=== PATIENT | male | born 1980 | race Caucasian/White ===

== ENCOUNTER 2017-01-16 09:01 | Inpatient (IN) | payer BC, OTHER ==
[~2017-01-16] VITALS: Ht 185.4 cm; Wt 83.9 kg
--- NOTE | 2017-01-16 11:00 | NUR ---
INTAKE INTERVIEW Patient is a 36 year old male. Alert and orientated X 4. Vital signs are normal. Able to ambulate appropriately. no allergies reported. 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 Patient is here for dependence of Valium. He brought Ativan 2mg with him and will be disposed properly. No family history of substance abuse. Patient was explained all unit protocols and verbalized understanding.
--- NOTE | 2017-01-16 11:30 | NUR ---
ADMISSION NOTE VS: BP-129/95 HR-100 R- 20 T-97.4f O2-97% Pain- 0/10 Height: 6'0" Weight: 185 Allergies: NKA Patient is a 36 year old male admitted to [facility] on 01/16/2017 at 1130. patient is under the care of DR. Ernandez for benzo dependence. Patient denies suicidal and homicidal ideations at this time. patient denies being hospitalized in the past 30 days. patient denies chest pain on SOB. Patient reports using Valium 15 mg daily. Upon assessment patients skin is intact. CIWA is 9 upon admission. NKA, alert and orientated X4. He is able to answer questions necessary for the admission process. Pt is a full code. Vital signs WNL, regular diet. Patient denies having seizures. Patient denies having a PCP. Dr. Melendrez is his psychiatrist. Patient respirations are even and unlabored, spo2 is 97% on room air. patient ambulates with a steady gait. pt reprots feeling extremely anxious. pt reports hx of treatment at [facility] in october 2016. patient lives at home with his family. HX of anxiety and depression. patient refuses pneumonia vaccination. Dr. ernandez has been notified and has placed the patient under observation. all needs have been met. Pat has been orientated to the room and the unit. [facility]. Bed is in lowest position, side rails up X2 and call light within reach. Will continue to monitor patient. SUBSTANCE ABUSE: Valium 15 mg daily since september 2016 last used 01/15/2017
[2017-01-16 11:45] LABS: *AMPHETAMINE, URINE NEGATIVE (NEGATIVE); *BARBITURATE, URINE NEGATIVE (NEGATIVE); *CANNABINOID, URINE NEGATIVE (NEGATIVE); *COCCAINE, URINE NEGATIVE (NEGATIVE); *OPIATE, URINE NEGATIVE (NEGATIVE); *PHENCYCLIDINE SCREEN,URINE NEGATIVE (NEGATIVE)
[2017-01-16 12:00] VITALS: BP 129/75
[2017-01-16] MEDS ORDERED: DIAZEPAM 10 MG TABLET PO ONE (13:15)
[2017-01-16] MEDS ORDERED: HYDROXYZINE PAMOATE 25 MG CAPSULE PO PRN ×2 (13:15→13:45)
[2017-01-16] MEDS ORDERED: ACETAMINOPHEN 325 MG TABLET PO PRN (13:45)
[2017-01-16] MEDS ORDERED: IBUPROFEN 400 MG TABLET PO PRN (13:45)
[2017-01-16] MEDS ORDERED: DICYCLOMINE HCL 20 MG TABLET PO PRN (13:45)
[2017-01-16] MEDS ORDERED: MAGNESIUM HYDROXIDE 30 ML LIQUID UDC PO PRN (13:45)
[2017-01-16] MEDS ORDERED: DIAZEPAM 5 MG TABLET PO PRN (13:45)
[2017-01-16] MEDS ORDERED: MAG HYDROX/AL HYDROX/SIMETH 30 ML LIQUID UDC PO PRN (13:45)
[2017-01-16] MEDS ORDERED: ONDANSETRON 4 MG/2 ML VIAL IM PRN (13:45)
[2017-01-16] MEDS ORDERED: DIAZEPAM 10 MG TABLET PO PRN ×2 (13:45)
[2017-01-16] MEDS ORDERED: LOPERAMIDE HCL 2 MG CAPSULE PO PRN ×2 (13:45)
[2017-01-16] MEDS ORDERED: THIAMINE HCL 200 MG/2 ML VIAL IM ONE (13:45)
[2017-01-16] MEDS ORDERED: LORAZEPAM 2 MG/1 ML VIAL IM PRN (13:45)
[2017-01-16] MEDS ORDERED: MIRALAX 17 GM POWD.PACK PO PRN (13:45)
[2017-01-16] MEDS: GABAPENTIN 300 MG CAPSULE PO SCH (15:14)
[2017-01-16 15:33] LABS: BASOPHILS # (AUTO) 0.1 K/uL (0.0-8.0); BASOPHILS % (AUTO) 0.7 % (0.0-2.0); EOSINOPHILS # (AUTO) 0.1 K/uL (0.0-0.7); EOSINOPHILS % (AUTO) 0.9 % (0.0-7.0); HEMATOCRIT 49.4 % (40-50); HEMOGLOBIN 16.2 G/DL (14.0-18.0); LYMPHOCYTES # (AUTO) 3.1 K/UL (0.8-4.8); MEAN CORPUSCULAR HEMOGLOBIN 29.5 UUG (27.0-31.0); MEAN CORPUSCULAR HGB CONC 33 g/dL (32.0-37.0); MONOCYTES # (AUTO) 0.7 K/UL (0.1-1.30); MONOCYTES % (AUTO) 7.2 % (0.0-11.0); NEUTROPHILS # (AUTO) 6.1 K/UL (1.8-8.9); NEUTROPHILS % (AUTO) 60.2 % (38.5-71.5); PLATELET COUNT (AUTO) 277 K/UL (150-450); RED BLOOD CELL COUNT(AUTO) 5.49 MIL/UL (4.7-6.1); WHITE BLOOD COUNT (AUTO) 10.1 K/UL (4.0-11.2)
[2017-01-16] MEDS: ESCITALOPRAM OXALATE 10 MG TABLET PO SCH (15:51)
[2017-01-16 15:55] LABS: ETHANOL < 3 MG/DL (0-0)
[2017-01-16 15:58] LABS: ALANINE AMINOTRANSFERASE 102 U/L (16-63); ALKALINE PHOSPHATASE 76 U/L (50-136); ASPARTATE AMINOTRANSFERASE 37 U/L (15-37); BILIRUBIN,TOTAL 1.2 mg/dL (0.2-1.0); CARBON DIOXIDE 24 mmol/L (21-32); CHLORIDE 104 mmol/L (98-107); CREATININE 1.1 mg/dL (0.6-1.3); GLUCOSE 111 mg/dL (74-106); MAGNESIUM 2.4 mg/dL (1.8-2.4); POTASSIUM 3.6 mmol/L (3.5-5.1); TOTAL PROTEIN, SERUM 7.7 g/dL (6.4-8.2); UREA NITROGEN, BLOOD 12 mg/dL (7-18)
[2017-01-16 16:00] VITALS: BP 109/68
[2017-01-16 16:07] LABS: THYROID STIMULATING HORMONE 1.114 mIU/mL (0.358-3.740)
[2017-01-16] MEDS: ONDANSETRON ODT 4 MG TAB.RAPDIS SL PRN (17:54)
--- NOTE | 2017-01-16 17:55 | NUR ---
PRN MEDICATION Patient complained of nausea. No emesis reported. Gave 4mg SL Zofran. Will continue to monitor patient.
--- NOTE | 2017-01-16 18:25 | NUR ---
PRN REASSESSMENT Patient expressed Zofran decreased his nausea. Will continue to monitor.
--- NOTE | 2017-01-16 18:48 | NUR ---
END OF SHIFT NOTE Patient was admitted today around 1130 for Valium dependency. Patient is alert and orientated X 4. Vital signs remain stable throughout the day. Patient is laying comfortably in bed. Patient has a history of premature ventricular heart beat, anxiety and depression. Patient has an external heart monitor. Zofran PRN given for nausea with effectiveness. Patient was seen by Dr. Tovar. All safety measures in place; call light within reach, bed locked and in lowest position. Last CIWA 6, All needs have been met. Will endorse to oncoming night nurse.
[2017-01-16 20:00] VITALS: BP 119/81
--- NOTE | 2017-01-16 20:00 | NUR ---
Start of Shift Pt is a 36 year old male admitted for Benzo dependence, placed on Valium taper. Pt reported using Valium 15mg/daily and Klonopin 3mg/daily. PMH: Anxiety, Depression and Premature Ventricular heart beat. Patient has an external heart monitor. NKA, regular diet, fall/seizure precautions and full code. Upon assessment, pt reports feeling anxious, Pt states, I I feet on edge. Pt is fidgeting, unable to sit still. Respirations even/unlabored, denies SOB/chest pain, denies n/v/d, BP 119/81, pulse 86, respirations 14, SpO2 98%, temp 97.9, no pain 0/10. Scheduled medications to be administered. Safety measures in place, call light within reach, side rails up x2, bed locked and in low position. Will continue to monitor.
[2017-01-16] MEDS ORDERED: GABAPENTIN 300 MG CAPSULE PO SCH (21:00)
[2017-01-16] MEDS ORDERED: DIAZEPAM 10 MG TABLET PO SCH (21:00)
[2017-01-16] MEDS: CLONIDINE HCL 0.1 MG TABLET PO PRN (23:33)
--- NOTE | 2017-01-16 23:33 | NUR ---
PRN Administration Pt reports feeling anxious and restless.. Pt is noted to continuously tapping feet, fidgeting and is unable to sit still. Pt requested relief. Clonidine 0.1mg PRN administered. Safety measures in place. Will continue to monitor.
[2017-01-17] VITALS: BP 115/88
--- NOTE | 2017-01-17 00:33 | NUR ---
PRN Reassessment/Administration Upon reassessment, pt is awake, reports to continue feeling anxious, restless and is unable to fall asleep. Pt refuses to take Valium PRN that is available. Pt reports, I need a stronger medication to help me because nothing is helping me. Contacted , received new order for Trazodone 50mg x1 and contact psych for any additional orders. Trazodone 50mg PRN x1 administered. Safety measures in place. Will continue to monitor.
--- NOTE | 2017-01-17 01:03 | NUR ---
PRN Reassessment Trazodone 50mg x1 ineffective
[2017-01-17] MEDS ORDERED: TRAZODONE 50 MG TABLET PO ONE (01:15)
--- NOTE | 2017-01-17 01:15 | NUR ---
Behavioral Pt seen pacing, restless, irritated. Tried to implement non-pharmacological methods methods were ineffective. Pt continued to state, I need something stronger to help my restlessness and anxiety. Continued to offer current medications, however pt refused.
--- NOTE | 2017-01-17 02:43 | NUR ---
Psych Communication Contacted Psych for new orders regarding anxiousness, restlessness that pt states was not relieved. Psych stated no new orders and for pt to continue current medications.
--- NOTE | 2017-01-17 03:18 | NUR ---
PRN Administration Valium 10mg PRN administered, CIWA 10 pt is restless, fidgeting, racing thoughts, irritable, sweaty. Safety measures in place. Will continue to monitor.
[2017-01-17 04:00] VITALS: BP 111/80
--- NOTE | 2017-01-17 04:18 | NUR ---
PRN Reassessment CIWA 8
[2017-01-17] MEDS: ONDANSETRON ODT 4 MG TAB.RAPDIS SL PRN ×2 (06:04→23:03)
--- NOTE | 2017-01-17 06:04 | NUR ---
ZOFRAN PRN Pt reports nausea, requests relief - Zofran 4mg ODT PRN adminitered. Safety measures in place. Will continue to monitor.
--- NOTE | 2017-01-17 07:04 | NUR ---
ZOFRAN PRN REASSESSMENT Nausea improved as reported per pt. safety measures in place. Will continue to monitor.
--- NOTE | 2017-01-17 07:05 | NUR ---
End of Shift Pt is a 36 year old male admitted for Benzo dependence, placed on Valium taper. Pt reported using Valium 15mg/daily and Klonopin 3mg/daily. PMH: Anxiety, Depression and Premature Ventricular heart beat. Patient has an external heart monitor. NKA, regular diet, fall/seizure precautions and full code. At 2333, Pt reported feeling anxious, restlessness and fidgeting noted, Clonidine 0.1mg PRN administered Clonidine ineffective. Pt continue to report feeling anxious, restless and was unable to fall asleep. Pt refused to take Valium PRN that was available. Pt reports, I need a stronger medication to help me because nothing is helping me. Contacted MD, received and administered new order for Trazodone 50mg x1 and to contact psych for any additional orders. Trazodone 50mg x1 ineffective, Pt seen pacing, restless, irritated. Tried to implement non-pharmacological methods methods were ineffective. Pt continued to state, I need something stronger to help my restlessness and anxiety. Continued to offer current medications, however pt refused. Upon contacting psych, Psych stated no new orders and for pt to continue current medications. Valium 10mg PRN was administered at 0318 for CIWA 10 pt noted restless, fidgeting, racing thoughts, irritable, sweaty. Upon reassessment, CIWA 10 decreased to CIWA 8. Zofran 4mg ODT administered for nausea, effective. Pt slept for 1 hour, intake of 796 ml PO, voids x0 and stool x0. Safety measures in place, call light within reach, side rails up x2, bed locked and in low position. Endorsed to day shift nurse.
--- NOTE | 2017-01-17 07:37 | NUR ---
START OF SHIFT NOTE: Received report from shift superintendent nurse. Pt is a 36 year old male admitted 01-16-17 for Benzo dependence, placed on Valium taper. Tolerating well. Pt is alert and oriented X 4. Color good, skin warm and dry. Respirations even and unlabored. Resting in bed. Safety precautions observed. Call light within reach. Will continue to monitor.
[2017-01-17 08:00] VITALS: BP 118/73
[2017-01-17] MEDS ORDERED: BENZOCAINE/MENTH/CETYLPYRD LOZENGE MM PRN (08:15)
[2017-01-17] MEDS ORDERED: TUBERCULIN,PURIF.PROT.DERIV. 5 TU/0.1 ML TEST ID ONE (09:00)
--- NOTE | 2017-01-17 09:00 | NUR ---
TB test administered RFA
[2017-01-17] MEDS: ESCITALOPRAM OXALATE 10 MG TABLET PO SCH (09:08)
[2017-01-17] MEDS: MULTIVITAMINS,THERAPEUTIC TABLET PO SCH (09:09)
[2017-01-17] MEDS: DIAZEPAM 5 MG TABLET PO SCH ×4 (09:09→21:40)
[2017-01-17] MEDS: GABAPENTIN 300 MG CAPSULE PO SCH ×3 (09:09→21:40)
[2017-01-17] MEDS: THIAMINE HCL 100 MG TABLET PO SCH (09:09)
[2017-01-17] MEDS: FOLIC ACID 1 MG TABLET PO SCH (09:09)
[2017-01-17] MEDS: DOCUSATE SODIUM 250 MG CAPSULE PO SCH (09:09)
--- NOTE | 2017-01-17 10:00 | NUR ---
VSS CIWA 11 Pt c/o anxiety, restless legs, sweating. Pt states "Valium is not working." Dr. Tovar notified.
[2017-01-17] MEDS ORDERED: DIAZEPAM 5 MG TABLET PO PRN (12:45)
[2017-01-17] MEDS ORDERED: DIAZEPAM 10 MG TABLET PO PRN (12:45)
--- NOTE | 2017-01-17 13:00 | NUR ---
VSS CIWA 5 Pt c/o anxiety but states is much improved from this AM. Gabapentin increased to 600mg tid.
[2017-01-17 13:10] LABS: HEPATITIS B SURFACE AG Negative (Negative)
[2017-01-17 13:32] VITALS: BP 109/65
[2017-01-17] MEDS ORDERED: TRAZODONE 100 MG TABLET PO PRN (17:15)
[2017-01-17 17:48] VITALS: BP 90/54
--- NOTE | 2017-01-17 18:37 | NUR ---
END OF SHIFT REPORT: Report given to shift supervisor nurse . Pt is a 36 year old male admitted 01-16-17 for Benzo dependence, placed on Valium taper. Tolerating well. Pt is alert and oriented X 4. Color good, skin warm and dry. Respirations even and unlabored. Vital signs remained stable throughout shift. Last CIWA 5 @ 1700. No prn medication administered. Safety precautions observed. Call light within reach.
[2017-01-17 20:00] VITALS: BP 107/67
--- NOTE | 2017-01-17 20:15 | NUR ---
START OF SHIFT NOTE Pt is a 36 y/o male admitted for Valium and Klonopin dependence and use. Pt has NKA but reported a PMH of Pre mature ventricular heart beat, anxiety, and depression. Per day shift nurse pt was placed on a Valium taper and is tolerating medication well, with no s/e or a/r reported. Pt didn't receive any PRNS during the day shift. Last CIWA: 5 (1600). At this time pt is in his room watching television. Pt stated " I'm doing alright. Earlier was a little rough, but as the day went on things got better. " Pt denies any pain/discomfort at this time. Pt encouraged to notify staff of any changes in condition or of any concerns. Pt verbalized an understanding. All safety measures in place; side rails up x 2, bed locked and in low position, and call light within reach. Will continue to monitor.
--- NOTE | 2017-01-17 23:03 | NUR ---
ZOFRAN PRN ADMINISTRATION Pt stated " I feel nauseous. " Zofran 4 mg ODT was given. Pt encouraged to notify staff of any changes in condition or of any concerns. Pt verbalized an understanding. All safety measures in place; side rails up x 2, bed locked and in low position, and call light within reach. Will monitor for effectiveness.
[2017-01-18] VITALS: BP 123/74
--- NOTE | 2017-01-18 00:03 | NUR ---
SEB PRN REASSESSMENT Pt stated " I feel better now. I'm not nauseous." PRN effective. Will continue to monitor.
[2017-01-18 04:00] VITALS: BP 115/72
[2017-01-18] MEDS: CLONIDINE HCL 0.1 MG TABLET PO PRN ×2 (04:51→15:04)
--- NOTE | 2017-01-18 04:51 | NUR ---
CLONIDINE PRN ADMINISTRATION Pt stated "I 'm feeling restless and anxious, but I don't want Vistaril." Pt verbally consented to taking Clonidine 0.1 mg PO PRN. PRN given. Pt encouraged to notify staff of any changes in condition or of any concerns. Pt verbalized an understanding. All safety measures in place; side rails up x 2, bed locked and in low position, and call light within reach. Will monitor for effectiveness.
--- NOTE | 2017-01-18 05:41 | NUR ---
CLONIDINE PRN REASSESSMENT Pt stated " I feel relaxed." PRN effective. Will continue to monitor.
--- NOTE | 2017-01-18 07:15 | NUR ---
Start of Shift Report from the night nurse: pt is a 36 y/o male here for Benzo's r/t Klonopin 3mg and Valium 15mg/d; Modified Valium taper ordered. Pt is a full code, regular diet, NKA, fall and seizure precautions. Hhx: PVC's with EKG done at admission and results of NSR and BP/HR WNL's, Anxiety, Depression and relapse. PRN Zofran and Clonidine given last night for anxiety but the pt refused Vistaril. No abnormal labs or new orders endorsed. Last CIWA 7. Pt is in room asleep. Will cont. to monitor the pt.
--- NOTE | 2017-01-18 07:52 | NUR ---
END OF SHIFT NOTE Pt is a 36 y/o male admitted for Valium and Klonopin dependence and use. Pt has NKA but reported a PMH of Pre mature ventricular heart beat, anxiety, and depression. Pt continues on a Valium taper and is tolerating medication well, with no s/e or a/r reported. Pt received Zofran 4 mg ODT and Clonidine 0.1 mg PO PRN during the shift. Last CIWA: 7 (0400). Pt slept for a total of 6 hours. All safety measures in place; side rails up x 2, bed locked and in low position, and call light within reach. Endorsed to the oncoming nurse.
[2017-01-18 08:00] VITALS: BP 96/62
[2017-01-18 08:23] LABS: BILIRUBIN,DIRECT 0.3 mg/dL (0.0-0.2); BILIRUBIN,TOTAL 0.8 mg/dL (0.2-1.0); TOTAL PROTEIN, SERUM 7.8 g/dL (6.4-8.2)
[2017-01-18] MEDS: ESCITALOPRAM OXALATE 10 MG TABLET PO SCH (08:51)
[2017-01-18] MEDS: GABAPENTIN 300 MG CAPSULE PO SCH ×3 (08:51→20:43)
[2017-01-18] MEDS: DIAZEPAM 5 MG TABLET PO SCH ×3 (08:52→20:43)
[2017-01-18] MEDS: FOLIC ACID 1 MG TABLET PO SCH (08:53)
[2017-01-18] MEDS: DOCUSATE SODIUM 250 MG CAPSULE PO SCH (08:53)
[2017-01-18] MEDS: MULTIVITAMINS,THERAPEUTIC TABLET PO SCH (08:53)
[2017-01-18] MEDS: THIAMINE HCL 100 MG TABLET PO SCH (08:54)
[2017-01-18 12:00] VITALS: BP 112/61
--- NOTE | 2017-01-18 15:15 | NUR ---
PRN Medication Administration Pt is getting ready to go to group and is restless in room with c/o anxiety, V/S stable with BP 101/72 HR 82; PRN Clonidine 0.1mg given as ordered. Will reassess in 1H.
[2017-01-18 16:00] VITALS: BP 101/65
--- NOTE | 2017-01-18 16:00 | NUR ---
Reassessment Pt is in room resting during eval by Affiliate Marketing Coordinator MD and denies chest pain, is relaxed and states that he feels better, BP 101/65 HR 73; Clonidine is effective. Will cont. to monitor the pt.
--- NOTE | 2017-01-18 19:35 | NUR ---
End of Shift Report to night nurse: pt is a 36 y/o male here for Benzo's r/t Klonopin 3mg and Valium 15mg/d; Modified Valium taper ordered. Pt is a full code, regular diet, NKA, fall and seizure precautions. Hhx: PVC's with EKG done at admission and results of NSR and BP/HR WNL's, Anxiety, Depression and relapse. PRN Clonidine given for anxiety with stable BP, and eval by channel installer notified of pt's denial of chest pain yet clonidine given for anxiety with stable vitals and NNO's from channel installer. I notified Dr. Tovar of pt's depression with poor diet habits; recommended for me to f/u with Dr. Machado-new orders for modified Lexapro with increased dose of 15 mg. No hallucinations, delusions, or suicidal ideations during my shift. Pt is w/d to self and only attended the group therapy partially. New Orders for 01/19/17 for Liver fxn panel since pt has elevated AST and T. Bili. Last CIWA 2.
[2017-01-18 20:00] VITALS: BP 99/69
--- NOTE | 2017-01-18 20:00 | NUR ---
START OF SHIFT NOTE PATIENT IN ROOM. ALERT AND ORIENTED X 3. RESPIRATION EVEN AND UNLABORED. PATIENT C/O ANXIETY, SWEATING. NO N/V. PATIENT ENCOURAGED TO ATTEND AND PARTICIPATE IN ACTIVITIES. NO N/V. ENCOURAGE FLUIDS. DENIES ANY PAIN. RECEIVED REPORT FROM DAY SHIFT NURSE. PATIENT IS A 36 YEAR OLD MALE, ADMITTED FOR BENZO DEPENDENCE. PATIENT IS ON 3RD DAY OF HIS 4 DAY MODIFIED VALIUM TAPER. PATIENT IS FULL CODE, REGULAR DIET AND NO KNOWN ALLERGY. UPON ADMISSION,PATIENT STATES HE'S USING VALIUM 15 MG SINCE OCTOBER 14 AND KLONOPIN 3 MG SINCE [id number]. PATIENT REPORTS PMH OF PREMATURE VENTRICULAR HEART BEAT (WEARS EVENT MONITOR), ANXIETY AND DEPRESSION. SKIN INTACT. PATIENT IS ON FALL/SEIZURE PRECAUTION. NEW ORDER OF LEXAPRO. VS STABLE. PATIENT WAS GIVEN CLONIDINE FOR ANXIETY. LAST CIWA 2. SAFETY MEASURES IN PLACE. CALL LIGHT IN REACH. WILL CONTINUE TO MONITOR.
[2017-01-19] VITALS: BP 110/72
[2017-01-19] MEDS: CLONIDINE HCL 0.1 MG TABLET PO PRN ×2 (03:57→11:03)
--- NOTE | 2017-01-19 03:57 | NUR ---
PRN CLONIDINE ADMINISTRATION PATIENT C/O ANXIETY AND RESTLESSNESS. PRN CLONIDINE GIVEN. WILL MONITOR FOR EFFECTIVENESS
[2017-01-19 04:00] VITALS: BP 114/74
--- NOTE | 2017-01-19 04:57 | NUR ---
PRN CLONIDINE RE-ASSESSMENT PATIENT IN BED ASLEEP. NO S/S OF DISTRESS. RESPIRATION EVEN AND UNLABORED. SAFETY MEASURES IN PLACE. CALL LIGHT IN REACH. WILL CONTINUE TO MONITOR.
--- NOTE | 2017-01-19 07:10 | NUR ---
Start of Shift Report from the night nurse: pt is a 36 y/o male here for Benzo's r/t Klonopin 3mg and Valium 15mg/d; Modified Valium taper ordered. Pt is a full code, regular diet, NKA, fall and seizure precautions. Hhx: PVC's with EKG done at admission and results of NSR and BP/HR WNL's, Anxiety, Depression and relapse. No PRN medications given last night. V/S stable. Skin is intact. No abnormal labs or new orders endorsed. Last CIWA 3. Pt is in room asleep. Will cont. to monitor the pt.
--- NOTE | 2017-01-19 07:23 | NUR ---
END OF SHIFT NOTE MONITORED PATIENT THROUGHOUT SHIFT. PATIENT ENCOURAGE TO PARTICIPATE IN GROUPS. VS STABLE. PATIENT COMPLIANT WITH MEDICATIONS . PATIENT IN ROOM MOST OF THE SHIFT. PATIENT IS A 36 YEAR OLD MALE, ADMITTED FOR BENZO DEPENDENCE. PATIENT IS ON 3RD DAY OF HIS 4 DAY MODIFIED VALIUM TAPER. PATIENT IS FULL CODE, REGULAR DIET AND NO KNOWN ALLERGY. UPON ADMISSION,PATIENT STATES HES USING VALIUM 15 MG SINCE OCTOBER 14 AND KLONOPIN 3 MG SINCE [id number]. PATIENT REPORTS PMH OF PREMATURE VENTRICULAR HEART BEAT (PATIENT WEARS MONITOR.) , ANXIETY AND DEPRESSION. SKIN INTACT. PATIENT IS ON FALL/SEIZURE PRECAUTION. NEW ORDER OF LEXAPRO. PATIENT WAS GIVEN CLONIDINE FOR ANXIETY. LAST CIWA 3. SAFETY MEASURES IN PLACE. CALL LIGHT IN REACH. WILL CONTINUE TO MONITOR. SLEPT 8 HOURS. FLUID INTAKE 855 ML. VOIDED X 3 . NO BM .
[2017-01-19 08:00] VITALS: BP 98/62
[2017-01-19] MEDS: THIAMINE HCL 100 MG TABLET PO SCH (08:32)
[2017-01-19] MEDS: DIAZEPAM 5 MG TABLET PO SCH ×2 (08:32→21:39)
[2017-01-19] MEDS: FOLIC ACID 1 MG TABLET PO SCH (08:32)
[2017-01-19] MEDS: MULTIVITAMINS,THERAPEUTIC TABLET PO SCH (08:32)
[2017-01-19] MEDS: ESCITALOPRAM OXALATE 10 MG TABLET PO SCH (08:35)
[2017-01-19] MEDS: DOCUSATE SODIUM 250 MG CAPSULE PO SCH (08:35)
[2017-01-19 08:45] LABS: BILIRUBIN,DIRECT 0.1 mg/dL (0.0-0.2); BILIRUBIN,TOTAL 0.6 mg/dL (0.2-1.0); TOTAL PROTEIN, SERUM 7.4 g/dL (6.4-8.2)
--- NOTE | 2017-01-19 11:03 | NUR ---
PRN Medication Administration Pt is in hallway pacing, restless, very anxious and agitated, denies chest pain, BP 113/75 HR 78; PRN Clonidine 0.1mg given as ordered. Will reassess in 1H.
[2017-01-19 12:00] VITALS: BP 96/58
--- NOTE | 2017-01-19 12:05 | NUR ---
Reassessment Pt is laying in bed resting, watching television with mild restless feet and states that he feels less anxious than earlier; Clonidine is effective. Will cont. to monitor the pt.
[2017-01-19 16:00] VITALS: BP 94/56
--- NOTE | 2017-01-19 19:25 | NUR ---
End of Shift Report to night nurse: pt is a 36 y/o male here for Benzo's r/t Klonopin 3mg and Valium 15mg/d; Modified Valium taper ordered. Pt is a full code, regular diet, NKA, fall and seizure precautions. Hhx: PVC's with EKG done at admission and results of NSR and BP/HR WNL's, Anxiety, Depression and relapse. PRN Clonidine 0.1mg given at 1100am and is effective. New labs with no critical values and discussed the liver enzymes with the pt and to increase food and nutrition intake. No hallucinations, delusions, or suicidal ideations during my shift. Pt is w/d to self and refused to attend group therapy and activities during my shift. Last CIWA 3.
[2017-01-19 20:00] VITALS: BP 108/63
--- NOTE | 2017-01-19 20:00 | NUR ---
Start of Shift Pt is a 36 year old male admitted for Benzo dependence, placed on Valium taper. Pt reported using Valium 15mg/daily and Klonopin 3mg/daily. PMH: Anxiety, Depression and Premature Ventricular heart beat. Patient has an external heart monitor. NKA, regular diet, fall/seizure precautions and full code. Upon assessment, pt reports feeling anxious, is unable to sit still, skin flushed, skin noted with moderate sweat. Respirations even/unlabored, denies SOB/chest pain, denies n/v/d. Safety measures in place, call light within reach, side rails up x2, bed locked and in low position. Will continue to monitor.
[2017-01-19] MEDS: GABAPENTIN 300 MG CAPSULE PO SCH (22:00)
[2017-01-20] VITALS: BP 113/73
[2017-01-20] MEDS: ONDANSETRON ODT 4 MG TAB.RAPDIS SL PRN ×2 (00:07→09:14)
--- NOTE | 2017-01-20 00:07 | NUR ---
PRN Administration Pt reports feeling nausea - no emesis present. Zofran 4mg ODT administered.
--- NOTE | 2017-01-20 01:07 | NUR ---
PRN Reassessment Pt reports relief of nausea - Zofran effective. needs met, safety measures in place, will continue to monitor.
[2017-01-20] MEDS: CLONIDINE HCL 0.1 MG TABLET PO PRN (01:14)
--- NOTE | 2017-01-20 01:14 | NUR ---
PRN Administration Pt reports anxiety, restlessness. Pt is noted to be unable to sit still. Clonidine 0.1mg PRN administered. Safety measures in place. Will continue to monitor.
--- NOTE | 2017-01-20 02:14 | NUR ---
PRN Reassessment Pt is asleep, no s/s of distress noted, respirations even/unlabored. Safety measures in place. Will continue to monitor.
[2017-01-20 04:00] VITALS: BP 109/73
--- NOTE | 2017-01-20 07:00 | NUR ---
End of Shift Pt is a 36 year old male admitted for Benzo dependence, placed on Valium taper. Pt reported using Valium 15mg/daily and Klonopin 3mg/daily. PMH: Anxiety, Depression and Premature Ventricular heart beat. Patient has an external heart monitor. NKA, regular diet, fall/seizure precautions and full code. During shift, pt reported feeling anxious, is unable to sit still, skin flushed, skin noted with moderate sweat - scheduled Valium 5mg PRN administered. Pt refused scheduled Gabapentin 600mg - risks/benefits explained - however pt continued to refuse. . PRN Zofran 4mg ODT and Clonidine 0.1mg PRN administered for nausea and anxiety administered. Pt slept for 3 hours, intake of 1000 ML PO, voids x1 and stool x 0. Safety measures in place, call light within reach, side rails up x2, bed locked and in low position. Endorsed to day shift nurse.
--- NOTE | 2017-01-20 07:05 | NUR ---
Start of Shift Endorsement received from nightshift nurse. Pt is a 36 y/o male that has been admitted to [facility] for Valium dependence. Pt has been placed on a Valium taper. PT has completed the taper and will be under observation today. Pt received PRN Clonidine and Zofran. Pt reports sleeping 3 hours during nightshift. VS WNL, Full Code. PT is alert and oriented x4. Pt is in STABLE condition at this time. Remains compliant with medication and diet regimen. All needs have been met, All safety measures in place per hospital policy. Bed in lowest position, side rails up x2, call-light within reach. Will continue to monitor
[2017-01-20 08:00] VITALS: BP 105/77
[2017-01-20] MEDS: ESCITALOPRAM OXALATE 10 MG TABLET PO SCH (09:04)
[2017-01-20] MEDS: FOLIC ACID 1 MG TABLET PO SCH (09:04)
[2017-01-20] MEDS: DOCUSATE SODIUM 250 MG CAPSULE PO SCH (09:04)
[2017-01-20] MEDS: THIAMINE HCL 100 MG TABLET PO SCH (09:04)
[2017-01-20] MEDS: MULTIVITAMINS,THERAPEUTIC TABLET PO SCH (09:04)
--- NOTE | 2017-01-20 10:09 | NUR ---
STAT EKG/TROPONIN Pt c/o chest pain and points to the center of his chest, denies pain radiating elsewhere. Pt does not appear SOB. V/S are 109/78, heart rate 102, RR 20 even and unlabored, SpO2 is 96% room air. Dr. Tovar notified and ordered STAT EKG with STAT Troponin level, and Troponin level to be repeated in 8 hours.
[2017-01-20 12:00] VITALS: BP 122/76
[2017-01-20] MEDS: GABAPENTIN 300 MG CAPSULE PO SCH ×3 (12:15→21:48)
[2017-01-20] MEDS ORDERED: CLONIDINE HCL 0.1 MG TABLET PO PRN (12:15)
[2017-01-20] MEDS ORDERED: ONDANSETRON ODT 4 MG TAB.RAPDIS SL PRN (12:45)
[2017-01-20] MEDS: HYDROXYZINE PAMOATE 25 MG CAPSULE PO SCH ×3 (12:45→21:48)
[2017-01-20 16:00] VITALS: BP 107/73
[2017-01-20] MEDS ORDERED: HYDR-3895 PO (18:28)
[2017-01-20] MEDS ORDERED: ESCI10TA PO (18:28)
[2017-01-20] MEDS ORDERED: CLON0.1T14 PO (18:28)
[2017-01-20] MEDS ORDERED: TRAZ-147 PO (18:28)
[2017-01-20] MEDS ORDERED: GABA-534 PO (18:28)
--- NOTE | 2017-01-20 19:10 | NUR ---
Start of Shift Patient Received. Patient is in his room with door closed. Patient is noted sitting in chair in the corner of the room on his phone. TV is on with the volume very low. Patient noted continuously moving his leg, shifting in positions. Patient is able to verbalize Im just really anxious with a lot of nausea. Explained to patient that medications would be reviewed but routine medications would be administered promptly. Patient then verbalized Im not sure if I want to take them. Ill think about it. Patient noted to ask several questions regarding medication, ASE, AR. All questions were answered. Patient noted to continue to ask questions despite receiving answers. Patient is also able to verbalize I've seen all the Doctors including geophysical prospecting surveyor. I guess I have nothing to worry about. Patient is a 36 year old male, admitted on 01/16/17 for Benzo Dependence under the care of Dr. Tovar. Patient was placed on a 5 day Valium taper which has been completed. Patient verbalized no known allergies, full code, regular diet, skin noted intact, placed on fall and seizure precautions. Patient is noted with a past medical history of Premature ventricular heart beat, History of Symptomatic PVCs S/P Ablation in 01/2015, anxiety, Depression. Per endorsement, Patient is noted with personal heart monitor due to past medical history of PVCs. If monitor detects any abnormal rhythms, patient is notified via cell phone. Patient noted with multiple occasions of attention seeking behavior as evidence of requesting medication and then refusing medications, verbalizing increased anxiety and panic attack with vitals within normal limits. Patient threatened to leave AMA to go down to ER to receive Benzos and then requested to be readmitted to the unit. All needs attended to promptly. Will continue plan of care as ordered.
--- NOTE | 2017-01-20 19:30 | NUR ---
Start of Shift Endorsement given to nightshift nurse. Pt is a 36 y/o male that has been admitted to [facility] for Valium dependence. Pt has been placed on a Valium taper. PT has completed the taper and will be under observation today. Pt repeatedly asked for PRN medications and then asked to take them "15 minutes later" followed by refusing the medication. Dr. Tovar and Dr. Machado spoke to the pt regarding safety of his medications and educated him on S/E of the medications. Pt displays continious attention and medication seeking behavior. PT refuses to take any medication that isn't a Benzo. Pt repeatedly reported wanting to leave to go take benzos/. Pt has refused all medications after initially verbalizing that he wants to take the medications. Pt has remained in his room the whole day despite being encouraged to participate in groups and activities. VS WNL, Full Code. Intake: 1590ml, Void x2, BM x0. PT is alert and oriented x4. Pt is in STABLE condition at this time. . All needs have been met, All safety measures in place per hospital policy. Bed in lowest position, side rails up x2, call-light within reach. Will continue to monitor
[2017-01-20 20:11] LABS: *AMPHETAMINE, URINE NEGATIVE (NEGATIVE); *BARBITURATE, URINE NEGATIVE (NEGATIVE); *CANNABINOID, URINE NEGATIVE (NEGATIVE); *COCCAINE, URINE NEGATIVE (NEGATIVE); *OPIATE, URINE NEGATIVE (NEGATIVE); *PHENCYCLIDINE SCREEN,URINE NEGATIVE (NEGATIVE)
[2017-01-20 20:15] VITALS: BP 102/72
--- NOTE | 2017-01-20 21:48 | NUR ---
PRN Medication Administration After several attempts to administer routine medications, patient agreed to take medications. Patient verbalizing increased nausea due to anxiety due to s/p taper. Offered Zofran SL but patient refused and states Zofran sublingual does not work. Offered patient Zofran IM and patient agreed. All medications administered and patient able to tolerate well.
--- NOTE | 2017-01-20 22:50 | NUR ---
PRN Medication Administration Patient is verbalizing medication not effective and nausea continues. Offered Aparna LONG and patient refused. Offered non pharmacological interventions and patient still refused. Addendum: 01/21/17 at 0218 by VAL WAHL LVN PRN Medication Reassessment
[2017-01-21] MEDS: HYDROXYZINE PAMOATE 25 MG CAPSULE PO SCH ×3 (00:45→08:23)
[2017-01-21 00:50] VITALS: BP 107/75
[2017-01-21 02:43] VITALS: BP 108/69
--- NOTE | 2017-01-21 02:43 | NUR ---
Vitals/Medication Patient requested for nurse to assess vitals with patient verbalizing "my heart feels like its going fast and I think its because of the Vistaril." Patient noted sitting in the chair constantly shifting in position, moving feet and legs. Reassured patient Vital signs within normal limits. Offered patient Clonidine but patient refused. Will continue to monitor. Addendum: 01/21/17 at 0253 by VAL WAHL LVN Amended: Links added.
[2017-01-21 04:19] VITALS: BP 118/82
--- NOTE | 2017-01-21 07:13 | NUR ---
End of Shift Patient is in bed and was able to finally fall asleep. Breathing even and non labored. No signs of pain or discomfort noted. Patient is a 36 year old male admitted on 01/16/17 for Benzo Dependence under the care of Dr. Tovar. Patient completed a 5 day Valium taper. NO known allergies, full code, following a regular diet, placed on fall and seizure precautions, skin noted intact. Patients past medical history noted premature ventricular heart beat, History of Symptomatic PVCs S/P Ablation in 01/2015, anxiety, Depression. Patient was given PRN Zofran IM for nausea with medication not effective. Patient refused other mediations with risks and benefits explained. Patient high risk for AMA dispite patient planned discharge for today 01/21/17. Patient is pre-concerned about traffic heading home and verbalizing I have medications at home. All needs attended to promptly. Will endorse to morning shift to continue plan of care as ordered.
--- NOTE | 2017-01-21 07:30 | NUR ---
Start of shift note; Received report from night nurse. Patient is a 36 year old male admitted on 01/16/17 for Benzodiazepine dependence. Patient was placed on a Valium taper, no adverse reactions noted. Patient reported history of anxiety, depression, premature ventricular heart beat. EKG was done on 01/20/17 showed normal sinus rhythm. Patient is on Fall and seizure precaution. Patient is scheduled for discharge today. Will continue to monitor patient.
[2017-01-21 08:00] VITALS: BP 128/71
[2017-01-21] MEDS: ESCITALOPRAM OXALATE 10 MG TABLET PO SCH (08:12)
[2017-01-21] MEDS: GABAPENTIN 300 MG CAPSULE PO SCH (08:13)
[2017-01-21] MEDS: DOCUSATE SODIUM 250 MG CAPSULE PO SCH (08:23)
[2017-01-21] MEDS: FOLIC ACID 1 MG TABLET PO SCH (08:23)
[2017-01-21] MEDS: MULTIVITAMINS,THERAPEUTIC TABLET PO SCH (08:24)
[2017-01-21] MEDS: THIAMINE HCL 100 MG TABLET PO SCH (08:24)
[2017-01-21 09:41] VITALS: BP 128/68
--- NOTE | 2017-01-21 10:45 | NUR ---
Discharge note; Patient is AOX4. Patient is medically cleared for discharge by Dr. Tovar and patient's central office technician per Charge nurse. All patient's belongings, valuables, prescriptions were given to patient. Patient left the hospital on 01/21/17 at 1045, left in a stable condition. Patient completed treatment without any adverse reactions. Met all patient's needs.
== END 2017-01-21 10:55 | disposition home or self-care (01) | DRG 895 ==
LOC: SRC 10:36
PROVIDERS: ADMIT Internal Medicine; ATTEND Internal Medicine
PROC: HZ2ZZZZ Detoxification Services for Substance Abuse Treatment (ICD-10-PCS; principal; 2017-01-16)
PROC: HZ31ZZZ Individual Counseling for Substance Abuse Treatment, Behavioral (ICD-10-PCS; 2017-01-17)
DX: F13.230 Sedative, hypnotic or anxiolytic dependence with withdrawal, uncomplicated (principal); F41.1 Generalized anxiety disorder; Z90.49 Acquired absence of other specified parts of digestive tract; F41.0 Panic disorder [episodic paroxysmal anxiety]; I49.3 Ventricular premature depolarization; G47.00 Insomnia, unspecified
CPT/HCPCS: 36415; 70030-TC; 80307; 80346; 83735; 84443; 85025; 86580; 86592; 86705; 86803; 87340; 87806; 93005; G0480; J2405; Q0162